=== PATIENT | female | born 1990 | race Hispanic/Latino ===

== ENCOUNTER 2021-01-17 18:13 | Emergency (ER) ==
[2021-01-17] MEDS ORDERED: Ketorolac Tromethamine 30 MG/ML VIAL ONE (19:08)
== END 2021-01-17 19:29 | disposition home or self-care (01) ==
LOC: ERS 18:13
DX: S52.121A Displaced fracture of head of right radius, initial encounter for closed fracture (principal); W19.XXXA Unspecified fall, initial encounter
CPT/HCPCS: 29105; 96372; J1885

== ENCOUNTER 2021-01-19 13:55 | Emergency (ER) | payer SELFPAY ==
[2021-01-19] MEDS ORDERED: HYDROcodone/Acetaminophen 5/325 mg Tablet ONE (15:15)
== END 2021-01-19 16:00 | disposition home or self-care (01) ==
LOC: ERS 13:55
DX: S52.121A Displaced fracture of head of right radius, initial encounter for closed fracture (principal); W19.XXXA Unspecified fall, initial encounter
CPT/HCPCS: 29105